=== PATIENT | female | born 1970 | race Caucasian/White ===

== ENCOUNTER → 2019-05-19 | Outpatient (CLI) | payer BC ==
--- NOTE | 2019-05-19 14:37 | XR ---
EXAMINATION TYPE: XR knee complete LT DATE OF EXAM: 05/19/2019 COMPARISON: NONE HISTORY: Pain TECHNIQUE: Four views are submitted. FINDINGS: Mild narrowing the patellofemoral joint and medial compartment knee joint. No erosive changes. Tiny s pur along the upper margin of the patella. Small suprapatellar bursal fluid collection.. Osseous str uctures are intact. No acute fracture seen. IMPRESSION: 1. No acute fracture or dislocation.
== END | disposition home or self-care (01) ==
LOC: RADXRMAIN 14:15
PROVIDERS: ATTEND Pediatrics
DX: M25.562 Pain in left knee (principal)

== ENCOUNTER → 2019-06-24 | Outpatient (CLI) | payer BC ==
--- NOTE | 2019-06-27 14:33 | MM ---
Reason for exam: screening (asymptomatic). Last mammogram was performed 3 years and 11 months ago. History: Patient is nulliparous. Family history of breast cancer in paternal grandmother at age 50. Took hormonal contraceptives for 17 years. Physical Findings: A clinical breast exam by your physician is recommended on an annual basis and results should be correlated with mammographic findings. MG 3D Screening Mammo W/Cad Bilateral CC and MLO view(s) were taken. Prior study comparison: July 17, 2015, bilateral MG work up mamm w CAD BILAT. June 30, 2015, bilateral MG screening mammo w CAD. Finding: There is a circumscribed oval mass in the 3 o'clock position of the right breast, ultrasound recommended. Focal asymmetry left upper MLO view. ASSESSMENT: Incomplete: need additional imaging evaluation, BI-RAD 0 RECOMMENDATION: Special view mammogram of the left breast. Ultrasound of the right breast. [facility] will attempt to contact patient to return for supplemental views and ultrasound.
== END | disposition home or self-care (01) ==
LOC: RADMAMWWP 16:29
PROVIDERS: ATTEND Pediatrics
DX: Z12.31 Encounter for screening mammogram for malignant neoplasm of breast (principal)
CPT/HCPCS: 77063; 77067

== ENCOUNTER → 2019-07-06 | Outpatient (CLI) | payer BC ==
--- NOTE | 2019-07-07 10:30 | MM ---
Reason for exam: additional evaluation requested from abnormal screening. Last mammogram was performed less than 1 month ago. History: Patient is nulliparous. Family history of breast cancer in paternal grandmother at age 50. Took hormonal contraceptives for 17 years. Physical Findings: Nurse did not find any significant physical abnormalities on exam. MG 3D Work Up W/Cad LT CC and MLO view(s) were taken of the left breast. Prior study comparison: June 24, 2019, bilateral MG 3d screening mammo w/cad. July 17, 2015, bilateral MG work up mamm w CAD BILAT. There is no discrete abnormality including area of concern of left breast. Review of the right breast reveals a spiculated area upper outer quadrant right breast and ultrasound is recommended. Also ultrasound area of concern 1 o'clock right breast. These results were verbally communicated with the patient and result sheet given to the patient on 07/06/19. ASSESSMENT: Incomplete: need additional imaging evaluation, BI-RAD 0 RECOMMENDATION: Ultrasound. (right breast)
--- NOTE | 2019-07-07 10:38 | USB ---
Reason for exam: additional evaluation requested from abnormal screening. History: Patient is nulliparous. Family history of breast cancer in paternal grandmother at age 50. Took hormonal contraceptives for 17 years. US Breast Workup Limited RT Right limited breast ultrasound including focal area of concern, retroareolar and axilla demonstrates a 0.8 x 0.7 x 0.7cm cluster at 9 o'clock, a 0.8 x 0.7 x 0.3cm cystic lesion at 10 o'clock, a 1.0 x 0.6 x 0.7cm irregular, solid, hypoechoic lesion at 10 o'clock for which a tissue biopsy is recommended and a 0.6 x 0.5 x 0.3cm mixed lesion at 12 o'clock. These results were verbally communicated with the patient and result sheet given to the patient on 07/06/19. ASSESSMENT: Suspicious, BI-RAD 4 RECOMMENDATION: Ultrasound core biopsy of the right breast. Called Dr. Reed with mammographic findings and has scheduled an appointment for the patient for 07/20/19 at 4:[address] Grijalva. Biopsy scheduled for 07/28/19 at 12:20. PRELIMINARY REPORT CALLED AND FAXED TO DR. GRIJALVA ON 07/07/19.
== END | disposition home or self-care (01) ==
LOC: RADMAMWWP 14:12
PROVIDERS: ATTEND Pediatrics
DX: R92.8 Other abnormal and inconclusive findings on diagnostic imaging of breast (principal)
CPT/HCPCS: 77061; 77065

== ENCOUNTER → 2019-07-20 | Outpatient (CLI) | payer BC ==
[2019-07-20 16:06] VITALS: BP 122/80; PULSE 78; RESP 18; TEMP 98.1; BMI 35.9
--- NOTE | 2019-07-20 16:23 | P.GSHP ---
History of Present Illness H&P Date: 07/20/19 Chief Complaint: Abnormal mammogram and ultrasound Anitha is a 49-year-old white female who presents for breast evaluation. She had a routine mammogram performed on . Following this she was recommended to have additional views of the left breast and ultrasound of the right breast. Additional views of the left breast did not show anything of concern but in the right breast and ultrasound was recommended. Ultrasound revealed a 1 x 0.7 cm irregular solid lesion at 10:00 for which a tissue biopsy was recommended. The patient does not feel anything of concern in her breasts. She has no history of any trauma or infection in the breast. She has no history of any skin changes or nipple discharge. She is not complaining of any pain in her breasts. Family history: 1. father: Glioblastoma 2. Paternal grandmother: Breast cancer Hormonal history: menarche: 14 G0 periods regular, on her period now BCP: 20 years, stopped 5 years ago hormones: none Surgical History: none Medical History: none Social History: smoke: none alcohol: occasional drugs: none - Constitutional Constitutional: Denies chills, Denies fever - EENT Eyes: denies blurred vision, denies pain Ears: deny: decreased hearing, tinnitus Ears, nose, mouth and throat: Denies headache, Denies sore throat - Breasts Breasts: bilateral: as per HPI - Cardiovascular Cardiovascular: Denies chest pain, Denies shortness of breath - Respiratory Comment: asthma - Gastrointestinal Gastrointestinal: Denies abdominal pain, Denies diarrhea, Denies nausea, Denies vomiting - Genitourinary (Female) Genitourinary: Denies dysuria, Denies hematuria - Menstruation Menstruation: Reports period normal - Musculoskeletal Musculoskeletal: Denies myalgias - Integumentary Comment: psoriasis - Neurological Neurological: Denies numbness, Denies weakness - Psychiatric Psychiatric: Denies anxiety, Denies depression - Endocrine Endocrine: Reports fatigue, Denies weight change - Hematologic/Lymphatic Comment: none - Allergic/Immunologic Allergic/Immunologic: Reports seasonal allergies Past Medical History History of Any Multi-Drug Resistant Organisms: None Reported Smoking Status: Never smoker Medications and Allergies Home Medications Medication Instructions Recorded Confirmed Type Apremilast [Otezla] 30 mg PO DAILY 07/20/19 07/20/19 History Cholecalciferol (Vitamin D3) 2,000 unit PO WEEKLY 07/20/19 07/20/19 History [Vitamin D3] Allergies Allergy/AdvReac Type Severity Reaction Status Date / Time No Known Allergies Allergy Verified 07/20/19 16:06 Surgical - Exam Vital Signs Temp Pulse Resp BP Pulse Ox 98.1 F 78 18 122/80 98 07/20/19 16:02 07/20/19 16:02 07/20/19 16:02 07/20/19 16:02 07/20/19 16:02 BMI 36 - General well developed, well nourished, no distress, obese - Eyes normal ocular movement - ENT no hearing loss, no congestion - Neck no masses, trachea midline - Respiratory normal respiratory effort, clear to auscultation - Cardiovascular Rhythm: regular Heart Sounds: normal: S1, S2 - Abdomen Abdomen: soft, non tender, no guarding, no rigid, no rebound - Integumentary normal turgor - Neurologic no disoriented, no combative - Musculoskeletal normal gait, normal posture - Psychiatric oriented to time, oriented to person, oriented to place, speech is normal, memory intact breast exam: bra 42D Right breast: Multi-positional exam fibrocystic changes, no dominant masses or nodules of concern, the lesion seen on ultrasound could not be palpated Right axilla: No adenopathy of concern Left breast: Fibrocystic change increased nodularity at the 1 to 2 o'clock position in the midportion of the breast recommend ultrasound of this area if no lesion is identified FNA in the office Left axilla: No adenopathy of concern Patient has underneath both breast atypical psoriasis for which she is taking out has left Results Mammogram and ultrasound results reviewed Assessment and Plan Assessment: Impression: 1. Mammographic abnormality right breast 2. Ultrasound abnormality right breast 3. Fibrocystic changes bilateral breast 4. Nodule left breast to palpation 1 to 2:00 5. Family history of cancer 6. Psoriasis Plan: 1. Ultrasound core biopsy right breast 2. Ultrasound of left breast a palpable area 3. Depending on results of ultrasound of left breast FNA or core biopsy in the office 4. Medical management of medical conditions Risk and benefits of ultrasound core biopsy were discussed with the patient. She is scheduled for the near future and wishes to proceed. CC: DR. Reed
--- NOTE | 2019-07-21 08:44 | USB ---
Reason for exam: clinical finding. History: Patient is nulliparous. Family history of breast cancer in paternal grandmother at age 50. Took hormonal contraceptives for 17 years. Physical Findings: Breast exam performed by Dr. Grijalva. US Breast Limited LT Left limited breast ultrasound including focal area of concern, retroareolar and axilla demonstrates a 7 x 4 x 7mm oval, cystic lesion at 1 o'clock and three oval lymph nodes at the axilla tail measuring 6mm, 4mm and 5mm. Benign findings recommendation remains for right biopsy. Palpable left breast by Dr. Grijalva 1-2 o'clock. These results were verbally communicated with the patient and result sheet given to the patient on 07/20/19. ASSESSMENT: Suspicious, BI-RAD 4 RECOMMENDATION: Ultrasound core biopsy. (right breast) Called Dr. Grijalva's office with mammographic findings. Biopsy scheduled for 07/28/19 at 12:20. PRELIMINARY REPORT CALLED AND FAXED TO DR. GRIJALVA ON 07/21/19.
== END | disposition home or self-care (01) ==
LOC: WWCWWP 15:56
PROVIDERS: ATTEND Surgery
DX: R92.8 Other abnormal and inconclusive findings on diagnostic imaging of breast (principal); Z80.3 Family history of malignant neoplasm of breast

== ENCOUNTER → 2019-07-28 | Day surgery (SDC) | payer BC ==
[2019-07-28 12:49] VITALS: RESP 16; BMI 35.4
--- NOTE | 2019-07-28 13:49 | USB ---
EXAMINATION TYPE: US biopsy breast VAD RT, MG diagnostic mammo RT wo CAD DATE OF EXAM: 07/28/2019 CLINICAL HISTORY: R92.8 ABN MAMMO. TECHNIQUE: Ultrasound guided core biopsy of 10:00 right breast. COMPARISON: NONE FINDINGS: The procedure of ultrasound guided core biopsy was explained to the patient. Benefits, alternatives, and risks were discussed. An informed consent was then obtained. The patient was placed in supine positioning for imaging and for the procedure. The overlying skin was prepped and draped in usual sterile fashion. Lidocaine was used as anesthetic into the skin and subcutaneous tissue up to area of concern in the 10:00 right breast. Under ultrasound guidance, a 12-gauge vacuum assisted biopsy gun device was used to obtain 4 core samples. Following this, a biopsy clip was left in lesion. Verification mammogram demonstrates appropriate placement of clip marker. The patient tolerated the procedure well without any immediate complication. The patient was kept in the radiology department for short stay after the procedure and then discharged home in stable condition. IMPRESSION: Successful, uncomplicated ultrasound guided core biopsy of area of concern in the 10:00 right breast, full pathology results to follow. Pathology Results: Benign RIGHT BREAST MASS, ULTRASOUND GUIDED CORE BIOPSY: Sclerosing adenosis and fibrocystic change with foci of calcification. Recommendation Follow up ultrasound of the right breast in 6 months. LOY
[2019-07-28 13:55] VITALS: BP 118/76; PULSE 74; TEMP 97.9
== END ==
LOC: RADUSWWP 12:20
PROVIDERS: ATTEND Surgery
DX: N60.21 Fibroadenosis of right breast (principal); N60.11 Diffuse cystic mastopathy of right breast
CPT/HCPCS: 88305; 77065; 19083; A4648; J2001

== ENCOUNTER → 2019-08-04 | Outpatient (CLI) | payer BC ==
[2019-08-04 15:20] VITALS: BP 110/77; PULSE 99; RESP 18; TEMP 98.3; BMI 35.4
--- NOTE | 2019-08-04 16:07 | P.PN ---
Subjective Progress Note Date: 08/04/19 Principal diagnosis: discordant ultrasound core biopsy results right breast /evaluation of nodularity left breast Anitha is a 49-year-old white female who presents for breast evaluation. [place] [id number]. Following this she was recommended to have additional views of the left breast and ultrasound of the right breast. Additional views of the left breast did not show anything of concern but in the right breast and ultrasound was recommended. Ultrasound revealed a 1 x 0.7 cm irregular solid lesion at 10:00 for which a tissue biopsy was recommended. The patient does not feel anything of concern in her breasts. She has no history of any trauma or infection in the breast. She has no history of any skin changes or nipple discharge. She is not complaining of any pain in her breasts. Was recommended that the patient undergo a right breast ultrasound core biopsy. It was also recommended that she undergo a left breast ultrasound. She is status post a right breast ultrasound-guided core biopsy on [id number]. Pathology revealed sclerosing adenosis, fibrocystic change with foci of calcification. This was reviewed with the radiologist Dr. Isaac and there was some concern that the actual area of irregular solid lesion was adequately sampled. Therefore because this was discordant the options given to the patient of repeat ultrasound core biopsy versus needle localization and excision in the operating room. The patient has opted for needle localization and excision in the operating room. She understands that this may represent only fibrocystic disease however there is some question as to whether the lesion was actually sampled. The patient had some mild bruising and swelling of the right breast biopsy site but otherwise no complaints related to the procedure. With respect to the left breast the patient underwent a left breast ultrasound which showed fibrocystic change. The patient on her last visit was noted to have a palpable area in the left breast which we had determined if the ultrasound was negative but an FNA would be done of this area. The risks and benefits of FNA are discussed with the patient and this is going to be performed today. Family history: 1. father: Glioblastoma 2. Paternal grandmother: Breast cancer Hormonal history: menarche: 14 G0 periods regular, on her period now BCP: 20 years, stopped 5 years ago hormones: none Surgical History: none Medical History: none Social History: smoke: none alcohol: occasional drugs: none - Constitutional Constitutional: Denies chills, Denies fever - EENT Eyes: denies blurred vision, denies pain Ears: deny: decreased hearing, tinnitus Ears, nose, mouth and throat: Denies headache, Denies sore throat - Breasts Breasts: bilateral: as per HPI - Cardiovascular Cardiovascular: Denies chest pain, Denies shortness of breath - Respiratory Comment: asthma - Gastrointestinal Gastrointestinal: Denies abdominal pain, Denies diarrhea, Denies nausea, Denies vomiting - Genitourinary (Female) Genitourinary: Denies dysuria, Denies hematuria - Menstruation Menstruation: Reports period normal - Musculoskeletal Musculoskeletal: Denies myalgias - Integumentary Comment: psoriasis - Neurological Neurological: Denies numbness, Denies weakness - Psychiatric Psychiatric: Denies anxiety, Denies depression - Endocrine Endocrine: Reports fatigue, Denies weight change - Hematologic/Lymphatic Comment: none - Allergic/Immunologic Allergic/Immunologic: Reports seasonal allergies Past Medical History History of Any Multi-Drug Resistant Organisms: None Reported Smoking Status: Never smoker Medications and Allergies Home Medications Medication Instructions Recorded Confirmed Type Apremilast [Otezla] 30 mg PO DAILY 07/20/19 07/20/19 History Cholecalciferol (Vitamin D3) 2,000 unit PO WEEKLY 07/20/19 07/20/19 History [Vitamin D3] Allergies Allergy/AdvReac Type Severity Reaction Status Date / Time No Known Allergies Allergy Verified 07/20/19 16:06 Objective - Vital Signs Vital signs: Vital Signs Temp 98.3 F 08/04/19 15:15 Pulse 99 08/04/19 15:15 Resp 18 08/04/19 15:15 BP 110/77 08/04/19 15:15 Pulse Ox 96 08/04/19 15:15 Intake & Output 08/03/19 08/04/19 08/04/19 18:59 06:59 18:59 Weight 90.718 kg - Exam BMI 35.4 - Constitutional General appearance: Present: obese - EENT Eyes: Present: EOMI ENT: Present: hearing grossly normal - Neck Neck: Present: normal ROM - Respiratory Respiratory: bilateral: CTA - Cardiovascular Rhythm: regular Heart sounds: normal: S1, S2 - Gastrointestinal General gastrointestinal: Present: soft - Integumentary Integumentary: Present: normal turgor - Musculoskeletal Musculoskeletal: Present: gait normal - Psychiatric Psychiatric: Present: A&O x's 3, appropriate affect, intact judgment & insight - Allied health notes Allied Health Notes Comment(s): Breast examination: Right breast: Mild ecchymosis at biopsy site, no evidence of infection Left breast: Patient with persistent increased fullness upper-outer quadrant area FNA to be performed of this area Assessment and Plan Assessment: Impression: 1. Discordant ultrasound core biopsy of the right breast 2. Persistent fullness left breast with benign-appearing ultrasound in upper outer quadrant 3. Family history of cancer 4. Family history of breast cancer 5. psoriasis Plan: 1. Needle local excisional biopsy ultrasound abnormality right breast 2. FNA left breast 3. Medical management of medical conditions Risks and benefits of the procedure on the right breast were discussed with the patient. The reason for this secondary to the lesion being discordant was discussed with the patient. Options which would include close surveillance with repeat ultrasound in 6 months, repeat ultrasound core biopsy, or needle local excision in the operating room were discussed. After discussion the patient is opted for needle localization and excision in the operating room. Additionally discussion was had regarding the fullness in the left breast and the reason for fine-needle aspiration. Patient understood and wished to proceed. About 30 minutes spent on the visit. >50% spent on discussion.
--- NOTE | 2019-08-04 16:10 | P.PCN ---
Date of Procedure: 08/04/19 Preoperative Diagnosis: Fullness left breast upper outer quadrant Postoperative Diagnosis: same Procedure(s) Performed: Fine-needle aspiration left breast Anesthesia: none Surgeon: Frances Grijalva Pathology: other (breast FNA cytology) Condition: stable Disposition: same day Indications for Procedure: Fullness left breast upper outer quadrant Description of Procedure: Area of fullness the left breast was prepped using alcohol. A 21-gauge needle on a 10 mL syringe was inserted into the area of concern. Vacuum was applied to the plunger and multiple passes were made into the area of fullness. Cells were obtained. This was prepped and sent for pathology. Depending on results of this further recommendation to follow.
== END | disposition home or self-care (01) ==
LOC: WWCWWP 15:03
PROVIDERS: ATTEND Surgery
DX: N63.20 Unspecified lump in the left breast, unspecified quadrant (principal); Z98.890 Other specified postprocedural states
CPT/HCPCS: 88173

== ENCOUNTER 2019-09-20 07:20 | Day surgery (SDC) | payer BC ==
[2019-09-19 09:12] VITALS: BMI 35.4
[~2019-09-20 07:20] MED LIST: DEXAMETHASONE SOD PHOSPHATE 10 MG/ML 1 ML VIAL IV ONE; HEPARIN SODIUM,PORCINE 5,000 UNIT/ML 1 ML VIAL SQ ONE; HYDROmorphone 0.5 MG/0.5 ML SYRINGE IVP PRN; LACTATED RINGERS 1,000 ML IV SCH; LIDOCAINE 1% 20 ML VIAL (10MG/ML) FOR IV START INTRADERMA PRN; MIDAZOLAM 2 MG/2 ML VIAL IV PRN; ONDANSETRON 4 MG/2 ML VIAL IVP ONE; Pre Op ABX Message 1 EACH MISC MISCELLANE ONE; SCOPOLAMINE 1.5MG/72HR PATCH TRANSDERM ONE
[2019-09-20] MEDS ORDERED: ALPRAZolam 0.5 MG TAB PO ONE (07:58)
[2019-09-20] MEDS ORDERED: LIDOCAINE 1% INJ 10MG/ML (20 ML MDV) SQ ONE (09:06)
[2019-09-20] MEDS ORDERED: PROPOFOL 10 MG/ML 20 ML VIAL IV ONE (09:37)
[2019-09-20] MEDS ORDERED: fentaNYL (PF) 50 MCG/ML 2 ML AMP ONE (09:37)
[2019-09-20] MEDS ORDERED: PHENYLEPHRINE-0.9% NACL SYG 1 MG/10 ML SYRINGE ONE (09:37)
[2019-09-20] MEDS ORDERED: SUCCINYLCHOLINE CHLORIDE 100 MG/5 ML SYR IV ONE (09:37)
[2019-09-20] MEDS ORDERED: LIDOCAINE 1% INJ 10MG/ML (20 ML MDV) ONE (09:37)
[2019-09-20] MEDS ORDERED: MIDAZOLAM 2 MG/2 ML VIAL ONE (09:37)
[2019-09-20] MEDS ORDERED: LACTATED RINGERS 1,000 ML IV ONE (10:32)
--- NOTE | 2019-09-20 10:41 | P.OP ---
Date of Procedure: 09/20/19 Preoperative Diagnosis: ultrasound-guided core biopsy right breast discordant Postoperative Diagnosis: same Procedure(s) Performed: needle local excisional biopsy right breast Anesthesia: ANDREAA Surgeon: Frances Grijalva Estimated Blood Loss (ml): 3 IV fluids (ml): 500 Pathology: other (breast tissue) Condition: stable Disposition: same day Indications for Procedure: discordant ultrasound core biopsy right breast Operative Findings: dense breast tissue Description of Procedure: Anitha is a 49-year-old white female who had an ultrasound core biopsy of an area of concern in the right breast. Pathology was felt to be discordant and she opted for needle local excisional biopsy of the area of concern. Risk and benefits were discussed with the patient and she wished to proceed. The patient was taken to the radiology department where localization of area of concern was performed. She was then brought to the operating room. Following induction of anesthesia the right breast was prepped and draped in a sterile fashion. Incision was made near the tip of the. This is carried through skin and subcutaneous tissue into the breast tissue. The shaft was identified and brought into the incision. The tissue was clamped using Allis clamps. Circumferential dissection was performed removing the area of concern. Following this the specimen was painted for orientation. Specimen was sent to radiology. Specimen revealed the area of concern had been removed. The clip was in the specimen. The wound was well irrigated. Titanium clips were placed to sasha the area of concern. The deep tissues were closed using Vicryl suture. The subcutaneous tissue was closed using a 4-0 Monocryl suture. This was followed by subcuticular running Suture. The patient tolerated the procedure in stable condition. All instrument and sponge counts were correct at the end of the case.
--- NOTE | 2019-09-20 10:42 | P.DS ---
Providers Attending physician: Frances Grijalva Primary care physician: Lalo Reed Plan - Discharge Summary Discharge Rx Participant: No New Discharge Prescriptions: No Action Apremilast [Otezla] 30 mg PO DAILY Cholecalciferol (Vitamin D3) [Vitamin D3] 2,000 unit PO WEEKLY Discharge Medication List Apremilast [Otezla] 30 mg PO DAILY 07/20/19 [History] Cholecalciferol (Vitamin D3) [Vitamin D3] 2,000 unit PO WEEKLY 07/20/19 [History] Follow up Appointment(s)/Referral(s): Frances Grijalva MD [STAFF PHYSICIAN] - 1 Week Activity/Diet/Wound Care/Special Instructions: do not drive today, or fro 24 hours after DC nay shower after 48 hours wear bra at all times Discharge Disposition: HOME SELF-CARE
[2019-09-20 11:00] VITALS: TEMP 97
[2019-09-20 11:04] VITALS: RESP 16
[2019-09-20 12:13] VITALS: BP 106/72; PULSE 67
--- NOTE | 2019-09-20 12:21 | MM ---
EXAMINATION TYPE: MG pre op needle loc RT, MG surgical specimen RT DATE OF EXAM: 09/20/2019 COMPARISON: Right breast biopsy dated 07/28/2019 CLINICAL HISTORY: Discordant right breast biopsy per surgical. TECHNIQUE: Needle localization with wire placement and surgical excision of area of concern in the right breast. FINDINGS: The procedure of needle localization with wire placement and than surgical excision was explained to the patient. Benefits, alternatives, and risks were discussed. An informed consent was then obtained. Preprocedural timeout was performed. The shortest pathway for procedure was chosen. Shortest pathway was lateral to medial approach. The overlying skin was prepped and draped in usual sterile fashion. Lidocaine buffered with bicarbonate was used as anesthetic into the skin and subcutaneous tissue up to the level of area of concern. A 5 cm needle was used. It was placed via a lateral to medial approach under mammographic guidance. Subsequent 90 degrees mammogram show the needle to be in satisfactory position relative to the targeted area. At this point, wire was placed and the needle was withdrawn. The wire was fixed to patient's skin. Images were marked for surgeon. The patient tolerated the procedure well without any immediate complication. The patient was kept in the radiology department for short stay after the procedure and then taken to surgery for surgical excision. Targeted ribbon- shaped biopsy marker and wire are identified in specimen mammogram. The patient was kept in hospital for short stay after the procedure and then discharged home in stable condition. IMPRESSION: Successful, uncomplicated needle localization with wire placement and surgical excision of a targeted ribbon-shaped biopsy marker in the right breast, full pathology results to follow. Pathology Results: Benign RIGHT BREAST, NEEDLE LOCALIZATION EXCISION: Fibrocystic changes including sclerosing adenosis with calcifications, cysts, fibrosis, and apocrine metaplasia. Previous biopsy site changes. Recommendation Follow up mammogram of the right breast in 6 months. MTDD
== END 2019-09-20 12:29 | disposition home or self-care (01) ==
LOC: OR 07:20
PROVIDERS: ATTEND Surgery
DX: N60.11 Diffuse cystic mastopathy of right breast (principal); Z80.3 Family history of malignant neoplasm of breast
CPT/HCPCS: 81025; 88307; 76098; 19281; 19101; J2250; J1644; J1100; J2405; J2001; J3010; J2370; J0330; J2704

== ENCOUNTER → 2019-10-12 | Outpatient (CLI) | payer BC ==
[2019-10-12 16:36] VITALS: BP 101/68; PULSE 85; RESP 16; TEMP 97.8
--- NOTE | 2019-10-12 16:44 | P.PN ---
Progress Note - Text Progress Note Date: 10/12/19 Anitha is a 49-year-old white female status post right breast needle local excisional biopsy for discordant ultrasound core biopsy lesion. This was performed on [id number]. Patient has no complaints related to the procedure. Pathology is benign. This revealed fibrocystic changes including sclerosing adenosis with calcifications, cysts, fibrosis, and apocrine metaplasia. Physical exam: Lungs: Clear Heart: Regular rate and rhythm Incision: Clean and dry no evidence of infection Impression: 1. Right breast needle local excisional biopsy pathology benign Plan: 1. Repeat right breast mammogram in 6 months with physician exam at that time Cc: Dr. Eugenio See
== END | disposition home or self-care (01) ==
LOC: WWCWWP 16:28
PROVIDERS: ATTEND Surgery
DX: Z53.9 Procedure and treatment not carried out, unspecified reason (principal)

== ENCOUNTER → 2020-04-16 | Outpatient (CLI) | payer BC ==
--- NOTE | 2020-04-16 10:15 | MM ---
Reason for exam: follow-up at short interval from prior study. Last mammogram was performed 9 months ago. History: Patient is nulliparous. Family history of breast cancer in paternal grandmother at age 50. Benign MG pre op needle loc RT of the right breast, September 20, 2019. Benign US biopsy breast VAD RT of the right breast, July 28, 2019. Took hormonal contraceptives for 17 years. Physical Findings: Nurse did not find any significant physical abnormalities on exam. MG 3D Diag Mammo W/Cad RT CC and MLO view(s) were taken of the right breast. Prior study comparison: July 28, 2019, right breast MG diagnostic mammo RT wo CAD. July 06, 2019, left breast MG 3d work up w/cad LT. The breast tissue is heterogeneously dense. This may lower the sensitivity of mammography. Stable benign calcifications. There is chronic nodularity in the right breast. No significant new findings when compared with previous films. These results were verbally communicated with the patient and result sheet given to the patient on 04/16/20. ASSESSMENT: Benign, BI-RAD 2 RECOMMENDATION: Return to routine screening mammogram schedule for both breasts. Back on schedule for July 2020.
== END | disposition home or self-care (01) ==
LOC: RADMAMWWP 09:27
PROVIDERS: ATTEND Surgery
DX: R92.8 Other abnormal and inconclusive findings on diagnostic imaging of breast (principal)
CPT/HCPCS: 77061; 77065

== ENCOUNTER → 2020-07-30 | Outpatient (CLI) | payer BC ==
--- NOTE | 2020-08-01 09:07 | MM ---
Reason for exam: screening (asymptomatic). Last mammogram was performed 3 months ago. History: Patient is nulliparous. Family history of breast cancer in paternal grandmother at age 50. Benign MG pre op needle loc RT of the right breast, September 20, 2019. Benign US biopsy breast VAD RT of the right breast, July 28, 2019. Took hormonal contraceptives for 17 years. Physical Findings: A clinical breast exam by your physician is recommended on an annual basis and results should be correlated with mammographic findings. MG 3D Screening Mammo W/Cad Bilateral CC and MLO view(s) were taken. Prior study comparison: April 16, 2020, right breast MG 3d diag mammo w/cad RT. July 28, 2019, right breast MG diagnostic mammo RT wo CAD. The breast tissue is heterogeneously dense. This may lower the sensitivity of mammography. Finding: Architectural distortion in the upper outer quadrant, middle, posterior position of the right breast consistent with known excisional changes. There is a 9mm lobular lesion upper anterior left breast 5cm from the nipple on CC 52/75 and MLO 57/83. There is a new 8mm circumscribed lesion anterior right upper outer quadrant 5cm from the nipple MLO 24/85 and CC 43/70. ASSESSMENT: Incomplete: need additional imaging evaluation, BI-RAD 0 RECOMMENDATION: Ultrasound of both breasts. [facility] will attempt to contact patient to return for ultrasound.
== END | disposition home or self-care (01) ==
LOC: RADMAMWWP 16:35
PROVIDERS: ATTEND Surgery
DX: Z12.31 Encounter for screening mammogram for malignant neoplasm of breast (principal)
CPT/HCPCS: 77063; 77067

== ENCOUNTER → 2020-08-03 | Outpatient (CLI) | payer BC ==
--- NOTE | 2020-08-06 08:41 | USB ---
Reason for exam: additional evaluation requested from abnormal screening. History: Patient is nulliparous. Family history of breast cancer in paternal grandmother at age 50. Benign MG pre op needle loc RT of the right breast, September 20, 2019. Benign US biopsy breast VAD RT of the right breast, July 28, 2019. Took hormonal contraceptives for 17 years. Physical Findings: Nurse did not find any significant physical abnormalities on exam. US Breast Workup Limited JESIKA Right limited breast ultrasound including focal area of concern, retroareolar and axilla demonstrates a 7 x 6 x 8mm lobular, cystic lesion at 10 o'clock and a 7 x 4 x 7mm lobular, cystic lesion at 11 o'clock. Left limited breast ultrasound including focal area of concern, retroareolar and axilla demonstrates a 5 x 4 x 6mm lobular, cystic lesion at 11 o'clock and a 9 x 5 x 7mm oval, cystic lesion at 1 o'clock. These results were verbally communicated with the patient and result sheet given to the patient on 08/03/20. ASSESSMENT: Benign, BI-RAD 2 RECOMMENDATION: Return to routine screening mammogram schedule for both breasts.
== END | disposition home or self-care (01) ==
LOC: RADUSWWP 15:51
PROVIDERS: ATTEND Surgery
DX: R92.8 Other abnormal and inconclusive findings on diagnostic imaging of breast (principal)

== ENCOUNTER → 2020-08-03 | Outpatient (CLI) | payer BC ==
[2020-08-03 17:10] VITALS: BP 125/82; PULSE 86; RESP 18; TEMP 97.8
--- NOTE | 2020-08-03 17:17 | P.PN ---
Subjective Progress Note Date: 08/03/20 Principal diagnosis: Fibrocystic breast changes Anitha is a 50-year-old white female who presented for breast evaluation initially in July of 2019. [place] [id number]. Following this she was recommended to have additional views of the left breast and ultrasound of the right breast. Additional views of the left breast did not show anything of concern but in the right breast and ultrasound was recommended. Ultrasound revealed a 1 x 0.7 cm irregular solid lesion at 10:00 for which a tissue biopsy was recommended. The patient does not feel anything of concern in her breasts. She has no history of any trauma or infection in the breast. She has no history of any skin changes or nipple discharge. She is not complaining of any pain in her breasts. She had an ultrasound core biopsy performed in July 2019. This was benign but there was some concern that this was discordant. She therefore underwent a breast needle local excisional biopsy in September 2019. This was benign as well. She had a mammogram. [id number]. This was benign BIRADS 2 and routine screening of both breasts in July 2020 was recommended. She had a bilateral mammogram performed on [id number]. This was a bilateral screening mammogram after which she had ultrasound of both breasts performed. Ultrasound of both breasts was performed on [id number] which is felt to be benign and one-year repeat mammogram was recommended. The patient at this time does not note any pain lumps masses nodules or skin changes in her breasts. She second complaining of any nipple discharge of concern. No history of any recent trauma or other procedures on the breast. Family history: 1. father: Glioblastoma 2. Paternal grandmother: Breast cancer Hormonal history: menarche: 14 G0 periods regular, on her period now BCP: 20 years, stopped 5 years ago hormones: none Surgical History: none Medical History: none Social History: smoke: none alcohol: occasional drugs: none - Constitutional Constitutional: Denies chills, Denies fever - EENT Eyes: denies blurred vision, denies pain Ears: deny: decreased hearing, tinnitus Ears, nose, mouth and throat: Denies headache, Denies sore throat - Breasts Breasts: bilateral: as per HPI - Cardiovascular Cardiovascular: Denies chest pain, Denies shortness of breath - Respiratory Comment: asthma - Gastrointestinal Gastrointestinal: Denies abdominal pain, Denies diarrhea, Denies nausea, Denies vomiting - Genitourinary (Female) Genitourinary: Denies dysuria, Denies hematuria - Menstruation Menstruation: Reports period normal - Musculoskeletal Musculoskeletal: Denies myalgias - Integumentary Comment: psoriasis - Neurological Neurological: Denies numbness, Denies weakness - Psychiatric Psychiatric: Denies anxiety, Denies depression - Endocrine Endocrine: Reports fatigue, Denies weight change - Hematologic/Lymphatic Comment: none - Allergic/Immunologic Allergic/Immunologic: Reports seasonal allergies Objective - Exam BMI 33.7 - Constitutional General appearance: Present: obese - EENT Eyes: Present: EOMI ENT: Present: hearing grossly normal - Neck Neck: Present: normal ROM - Respiratory Respiratory: bilateral: CTA - Cardiovascular Rhythm: regular Heart sounds: normal: S1, S2 - Gastrointestinal General gastrointestinal: Present: soft - Integumentary Integumentary Comment(s): Bilateral psoriasis on arms Integumentary: Present: normal turgor - Musculoskeletal Musculoskeletal: Present: gait normal - Psychiatric Psychiatric: Present: A&O x's 3, appropriate affect, intact judgment & insight - Additional findings Additional findings: Breast exam: BRA: 42F inspection: bilateral grade 3 ptosis, right breast larger than left breast Palpation: Right breast: Multiple positional exam fibrocystic breast changes, no dominant masses or nodules of concern Right axilla: No adenopathy of concern Left breast: Multi-positional exam fibrocystic changes, no dominant masses or nodules of concern Left axilla: No adenopathy of concern Assessment and Plan Assessment: Impression: Recent bilateral mammogram and ultrasound benign repeat mammogram in 1 year Fibrocystic breast changes Psoriasis Plan: 1. Repeat bilateral mammogram and physician exam in 1 year 2. Follow up sooner if any questions of concern CC: Dr. Reed encounter 15 minutes, > 50% of time in planning and counselling
== END | disposition home or self-care (01) ==
LOC: WWCWWP 15:53
PROVIDERS: ATTEND Surgery
DX: Z53.9 Procedure and treatment not carried out, unspecified reason (principal)

== ENCOUNTER → 2021-08-02 | Outpatient (CLI) | payer BC ==
--- NOTE | 2021-08-06 08:06 | MM ---
Reason for exam: screening (asymptomatic). Last mammogram was performed 1 year ago. History: Patient is nulliparous. Family history of breast cancer in paternal grandmother at age 50. Benign MG pre op needle loc RT of the right breast, September 20, 2019. Benign US biopsy breast VAD RT of the right breast, July 28, 2019. Took hormonal contraceptives for 17 years. Physical Findings: A clinical breast exam by your physician is recommended on an annual basis and results should be correlated with mammographic findings. MG 3D Screening Mammo W/Cad Bilateral CC and MLO view(s) were taken. Prior study comparison: August 03, 2020, bilateral US breast workup limited JESIKA. July 30, 2020, bilateral MG 3d screening mammo w/cad. April 16, 2020, right breast MG 3d diag mammo w/cad RT. June 24, 2019, bilateral MG 3d screening mammo w/cad. The breast tissue is heterogeneously dense. This may lower the sensitivity of mammography. There is chronic nodularity in the right breast. Post excision changes on the right. No significant changes when compared with prior studies. ASSESSMENT: Benign, BI-RAD 2 RECOMMENDATION: Routine screening mammogram of both breasts in 1 year.
== END | disposition home or self-care (01) ==
LOC: RADMAMWWP 16:38
PROVIDERS: ATTEND Surgery
DX: Z12.31 Encounter for screening mammogram for malignant neoplasm of breast (principal)
CPT/HCPCS: 77063; 77067

== ENCOUNTER → 2021-08-09 | Outpatient (CLI) | payer BC ==
[2021-08-09 16:23] VITALS: BP 105/67; PULSE 87; RESP 16; TEMP 98.2
--- NOTE | 2021-08-09 16:26 | P.PN ---
Subjective Progress Note Date: 08/09/21 Principal diagnosis: fibrocystic breast changes Fibrocystic breast changes Anitha is a 50-year-old white female who presented for breast evaluation initially in July of 2019. [place] [id number]. Following this she was recommended to have additional views of the left breast and ultrasound of the right breast. Additional views of the left breast did not show anything of concern but in the right breast and ultrasound was recommended. Ultrasound revealed a 1 x 0.7 cm irregular solid lesion at 10:00 for which a tissue biopsy was recommended. The patient does not feel anything of concern in her breasts. She has no history of any trauma or infection in the breast. She has no history of any skin changes or nipple discharge. She is not complaining of any pain in her breasts. She had an ultrasound core biopsy performed in July 2019. This was benign but there was some concern that this was discordant. She therefore underwent a breast needle local excisional biopsy in September 2019. This was benign as well. She had a mammogram. . This was benign BIRADS 2 and routine screening of both breasts in July 2020 was recommended. She had a bilateral mammogram performed on [id number]. This was a bilateral screening mammogram after which she had ultrasound of both breasts performed. Ultrasound of both breasts was performed on [id number] which is felt to be benign and one-year repeat mammogram was recommended. On 08-02-21 she had a bilateral mammogram which was Benign BIRAD 2. The patient at this time does not note any pain lumps masses nodules or skin changes in her breasts. She is not complaining of any nipple discharge or skin changes. No history of any recent trauma or other procedures on the breast. Family history: 1. father: Glioblastoma 2. Paternal grandmother: Breast cancer Hormonal history: menarche: 14 G0 periods regular, on her period now BCP: 20 years, stopped 5 years ago hormones: none Surgical History: none Medical History: none Social History: smoke: none alcohol: occasional drugs: none - Constitutional Constitutional: Denies chills, Denies fever - EENT Eyes: denies blurred vision, denies pain Ears: deny: decreased hearing, tinnitus Ears, nose, mouth and throat: Denies headache, Denies sore throat - Breasts Breasts: bilateral: as per HPI - Cardiovascular Cardiovascular: Denies chest pain, Denies shortness of breath - Respiratory Comment: asthma - Gastrointestinal Gastrointestinal: Denies abdominal pain, Denies diarrhea, Denies nausea, Denies vomiting - Genitourinary (Female) Genitourinary: Denies dysuria, Denies hematuria - Menstruation Menstruation: Reports period normal - Musculoskeletal Musculoskeletal: Denies myalgias - Integumentary Comment: psoriasis - Neurological Neurological: Denies numbness, Denies weakness - Psychiatric Psychiatric: Denies anxiety, Denies depression - Endocrine Endocrine: Reports fatigue, Denies weight change - Hematologic/Lymphatic Comment: none - Allergic/Immunologic Allergic/Immunologic: Reports seasonal allergies Objective - Vital Signs Vital signs: Intake & Output 08/08/21 08/09/21 08/09/21 18:59 06:59 18:59 Weight 90.718 kg - Constitutional General appearance: Present: cooperative - EENT Eyes: Present: EOMI ENT: Present: hearing grossly normal - Neck Neck: Present: normal ROM - Respiratory Respiratory: bilateral: CTA - Cardiovascular Heart sounds: normal: S1, S2 - Integumentary Integumentary: Present: normal turgor - Musculoskeletal Musculoskeletal: Present: gait normal - Psychiatric Psychiatric: Present: A&O x's 3, appropriate affect, intact judgment & insight - Additional findings Additional findings: Breast Exam: BRA: 42D inspection: bilateral grade 3 ptosis, bilateral psoriasis under the breast Palpation: right breast: Positional exam fibrocystic changes no dominant masses or nodules of concern Right axilla: No adenopathy of concern Left breast: Multi-positional exam fibrocystic changes no dominant masses or nodules of concern Left axilla: No adenopathy of concern Assessment and Plan Assessment: Impression: Fibrocystic breast changes Plan: Bilateral mammogram in 1 year with physician exam at that time CC: Dr. Reed
== END ==
LOC: WWCWWP 16:04
PROVIDERS: ATTEND Surgery
DX: N60.11 Diffuse cystic mastopathy of right breast (principal); N60.12 Diffuse cystic mastopathy of left breast

== ENCOUNTER → 2022-08-14 | Outpatient (CLI) | payer BC ==
[2022-08-14 16:13] VITALS: BP 104/68; PULSE 69; RESP 17; TEMP 98
--- NOTE | 2022-08-14 16:14 | P.PN ---
Subjective Progress Note Date: 08/14/22 Principal diagnosis: fibrocystic breast disease Fibrocystic breast changes Anitha is a 52-year-old white female who presented for breast evaluation initially in July of 2019. She had undergone a routine mammogram performed on . Following this she was recommended to have additional views of the left breast and ultrasound of the right breast. Additional views of the left breast did not show anything of concern but in the right breast an ultrasound was recommended. Ultrasound revealed a 1 x 0.7 cm irregular solid lesion at 10:00 for which a tissue biopsy was recommended. The patient does not feel anything of concern in her breasts. She had no history of any trauma or infection in the breast. She has no history of any skin changes or nipple discharge. She was not complaining of any pain in her breasts. She had an ultrasound core biopsy performed in July 2019. This was benign but there was some concern that this was discordant. She therefore underwent a breast needle local excisional biopsy in September 2019. This was benign as well. She had a mammogram. . This was benign BIRADS 2 and routine screening of both breasts in July 2020 was recommended. She had a bilateral mammogram performed on [id number]. This was a bilateral screening mammogram after which she had ultrasound of both breasts performed. Ultrasound of both breasts was performed on [id number] which was felt to be benign and one-year repeat mammogram was recommended. On 08-02-21 she had a bilateral mammogram which was Benign BIRAD 2. She has not had another mammogram yet this year. She does not complain of any lumps masses or nodules of concern in either breast. She is not complaining of any nipple discharge or skin changes Family history: 1. father: Glioblastoma 2. Paternal grandmother: Breast cancer Hormonal history: menarche: 14 G0 periods regular, on her period now BCP: 20 years, stopped 5 years ago hormones: none Surgical History: none Medical History: none Social History: smoke: none alcohol: occasional drugs: none - Constitutional Constitutional: Denies chills, Denies fever - EENT Eyes: denies blurred vision, denies pain Ears: deny: decreased hearing, tinnitus Ears, nose, mouth and throat: Denies headache, Denies sore throat - Breasts Breasts: bilateral: as per HPI - Cardiovascular Cardiovascular: Denies chest pain, Denies shortness of breath - Respiratory Comment: asthma - Gastrointestinal Gastrointestinal: Denies abdominal pain, Denies diarrhea, Denies nausea, Denies vomiting - Genitourinary (Female) Genitourinary: Denies dysuria, Denies hematuria - Menstruation Menstruation: Reports period normal - Musculoskeletal Musculoskeletal: Denies myalgias - Integumentary Comment: psoriasis - Neurological Neurological: Denies numbness, Denies weakness - Psychiatric Psychiatric: Denies anxiety, Denies depression - Endocrine Endocrine: Reports fatigue, Denies weight change - Hematologic/Lymphatic Comment: none - Allergic/Immunologic Allergic/Immunologic: Reports seasonal allergies Objective - Constitutional General appearance: Present: cooperative - EENT Eyes: Present: EOMI ENT: Present: hearing grossly normal - Neck Neck: Present: normal ROM - Respiratory Respiratory: bilateral: CTA - Cardiovascular Rhythm: regular Heart sounds: normal: S1, S2 - Gastrointestinal General gastrointestinal: Present: soft - Integumentary Integumentary: Present: normal turgor - Musculoskeletal Musculoskeletal: Present: gait normal - Psychiatric Psychiatric: Present: A&O x's 3, appropriate affect, intact judgment & insight - Additional findings Additional findings: Breast Exam: BRA: 42D Inspection: Bilateral grade 3 ptosis, bilateral psoriasis Palpation: Right breast: Multi-positional exam fibrocystic changes no dominant masses or nodules of concern Right axilla: No adenopathy of concern Left breast: Multi-positional exam fibrocystic changes no dominant masses or nodules of concern Left axilla: No adenopathy of concern Fungal infection and psoriasis under both breast. Assessment and Plan Assessment: Impressioin: Fibrocystic breast changes Psoriasis Fungal infection under both breast Plan: Bilateral mammogram if this is stable repeat bilateral mammogram in 1 year Nystatin to treat fungal infection under the breast CC: Dr. Reed
== END | disposition home or self-care (01) ==
LOC: WWCWWP 13:00
PROVIDERS: ATTEND Surgery
DX: Z53.9 Procedure and treatment not carried out, unspecified reason (principal)

== ENCOUNTER → 2022-09-05 | Outpatient (CLI) | payer BC ==
[2022-09-05 15:41] VITALS: BP 117/76; PULSE 71; RESP 16; TEMP 97.8
== END ==
LOC: WWCWWP 14:59
PROVIDERS: ATTEND Surgery
DX: Z53.9 Procedure and treatment not carried out, unspecified reason (principal)

== ENCOUNTER → 2022-09-05 | Outpatient (CLI) | payer BC ==
--- NOTE | 2022-09-05 16:06 | MM ---
Reason for Exam: Screening (asymptomatic). Last mammogram was performed 1 year(s) and 2 month(s) ago. Patient History: Menarche at age 13. Patient has no children. Patient used Hormonal Contraceptives for 17 years. 09/20/2019, Benign Core Biopsy on the right side. 07/28/2019, Benign Core Biopsy on the right side. Paternal grandmother had breast cancer, age 50. Risk Values: Jo 5 year model risk: 1.7%. NCI Lifetime model risk: 14.3%. Prior Study Comparison: 04/16/2020 Right Diagnostic Mammogram, [facility]. 07/30/2020 Bilateral Screening Mammogram, [facility]. 08/02/2021 Bilateral Screening Mammogram, [facility]. Tissue Density: There are scattered fibroglandular densities. Findings: Analyzed By CAD. There is been prior surgery on the right breast. Focal asymmetry is on the right. There is a new small nodule measuring 0.5 mm in the upper outer aspect right anterior breast located 5 cm nipple. Ultrasound recommended for additional evaluation. Overall Assessment: Incomplete: need additional imaging evaluation, BI-RAD 0 Management: Diagnostic Breast Ultrasound of the right breast. A negative mammogram report should not preclude additional follow up of suspicious palpable abnormalities. Patient should continue monthly self breast exam. A clinical breast exam by your physician is recommended on an annual basis and results should be correlated with mammographic findings. Electronically signed and approved by: Jean Shook D.O. Radiologis
--- NOTE | 2022-09-05 16:11 | P.PN ---
Progress Note - Text Progress Note Date: 09/05/22 Harini was just seen on [id number] and at that time breast examination did not reveal any new lumps masses or notches of concern. She was due for bilateral mammogram and this was performed on . On the mammogram and no nodule was noted proximally 5 mm in size and proximally 5 cm from the nipple. This was reviewed with Dr. Shook. A right breast ultrasound is recommended. This will be done and she will follow-up after the ultrasound is completed. Correction on the prior report no surgeries were reported the patient has had a right breast biopsy September 2019, was benign fibrocystic changes, sclerosing adenosis with calcifications.. CC:Dr. Reed
== END | disposition home or self-care (01) ==
LOC: RADMAMWWP 15:01
PROVIDERS: ATTEND Surgery
DX: Z12.31 Encounter for screening mammogram for malignant neoplasm of breast (principal); Z80.3 Family history of malignant neoplasm of breast
CPT/HCPCS: 77063; 77067

== ENCOUNTER → 2022-09-25 | Outpatient (CLI) | payer BC ==
--- NOTE | 2022-09-25 15:38 | USB ---
Reason for Exam: Additional evaluation requested from abnormal screening. Patient History: Menarche at age 13. Patient has no children. Patient used Hormonal Contraceptives for 17 years. 09/20/2019, Benign Core Biopsy on the right side. 07/28/2019, Benign Core Biopsy on the right side. Paternal grandmother had breast cancer, age 50. Risk Values: Jo 5 year model risk: 1.7%. NCI Lifetime model risk: 14.3%. Prior Study Comparison: 07/30/2020 Bilateral Screening Mammogram, [facility]. 08/02/2021 Bilateral Screening Mammogram, [facility]. 09/05/2022 Bilateral MG 3D screening mammo w/cad, [facility]. Findings: The upper outer quadrant of the right breast, the axilla of the right breast and the retroareolar of the right breast were scanned. Targeted ultrasound right breast upper outer quadrant from 8:00 to 12:00 including the subareolar region and axilla. At the 11:00 position, 5 cm from the nipple, there is a 4 x 4 x 3 mm benign cyst. At the 9:00 position, 4 cm from the nipple, there is a 4 x 3 x 3 mm intramammary lymph node. Probable mammographic correlate. Six-month follow-up mammogram recommended to reassess. Overall Assessment: Probably benign, BI-RAD 3 Management: Diagnostic Mammogram of the right breast in 6 months. 1. Patient should continue monthly self breast exams. 2. A clinical breast exam by your physician is recommended on an annual basis. 3. This exam should not preclude additional follow-up of suspicious palpable abnormalities. Results were given to the patient verbally at the time of exam. Electronically signed and approved by: Austin Perez M.D. Radiologist
--- NOTE | 2022-09-25 16:21 | P.PN ---
Subjective Progress Note Date: 09/25/22 Anitha was recently seen on [id number]. At that time her breast examination was done and did not reveal any new lumps masses or nodules of concern. She had a bilateral mammogram performed on . On the mammogram there was a right breast nodule which was approximately 5 mm in size noted and an ultrasound was recommended. The ultrasound was performed today on [id number]. The ultrasound was personally reviewed with Dr. Perez. A small intramammary lymph node as well as a small cyst were identified. The recommendation was for a repeat mammogram and ultrasound in 6 months of the right breast. Plan: right breast mammogram and ultrasound in 6 months with appointment at that time. CC: DR. Reed
== END | disposition home or self-care (01) ==
LOC: RADUSWWP 15:04
PROVIDERS: ATTEND Surgery
DX: R92.8 Other abnormal and inconclusive findings on diagnostic imaging of breast (principal); Z80.3 Family history of malignant neoplasm of breast; N63.10 Unspecified lump in the right breast, unspecified quadrant; N60.01 Solitary cyst of right breast

== ENCOUNTER → 2022-09-25 | Outpatient (CLI) | payer BC | LOC: WWCWWP 15:02 | PROVIDERS: ATTEND Surgery | DX: N63.10 Unspecified lump in the right breast, unspecified quadrant (principal); R92.8 Other abnormal and inconclusive findings on diagnostic imaging of breast; Z80.3 Family history of malignant neoplasm of breast ==

== ENCOUNTER → 2023-03-27 | Outpatient (CLI) | payer BC ==
--- NOTE | 2023-03-27 13:50 | MM ---
Reason for Exam: Follow-up at short interval from prior study. Last screening mammogram was performed 6 month(s) ago. Patient History: Menarche at age 13. Patient has no children. Patient used Hormonal Contraceptives for 17 years. 09/20/2019, Benign Core Biopsy on the right side. 07/28/2019, Benign Core Biopsy on the right side. Paternal grandmother had breast cancer, age 50. Risk Values: Jo 5 year model risk: 1.7%. NCI Lifetime model risk: 14.3%. Prior Study Comparison: 07/30/2020 Bilateral Screening Mammogram, [facility]. 08/02/2021 Bilateral Screening Mammogram, [facility]. 09/05/2022 Bilateral MG 3D screening mammo w/cad, [facility]. Tissue Density: Right: The breast tissue is heterogeneously dense. This may lower the sensitivity of mammography. Findings: Analyzed By CAD. Stable nodularity upper outer right breast. Ultrasound is recommended. Surgical clips redemonstrated. No suspicious calcifications. Overall Assessment: Incomplete: need additional imaging evaluation, BI-RAD 0 Management: Diagnostic Breast Ultrasound of the right breast. . Results were given to the patient verbally at the time of exam. Patient should continue monthly self-breast exams. A clinical breast exam by your physician is recommended on an annual basis. This exam should not preclude additional follow-up of suspicious palpable abnormalities. Note on Jo scores and lifetime risk: 1. A Jo score greater than 3% is considered moderate risk. If this is the case, consider specialist referral to assess eligibility for a risk reducing agent. 2. If overall lifetime risk for the development of breast cancer is 20% or higher, the patient may qualify for future screening with alternating mammogram and breast MRI. Electronically signed and approved by: Landon Monge M.D. Radiologis
--- NOTE | 2023-03-27 14:22 | USB ---
Reason for Exam: Follow-up at short interval from prior study. Patient History: Menarche at age 13. Patient has no children. Patient used Hormonal Contraceptives for 17 years. 09/20/2019, Benign Core Biopsy on the right side. 07/28/2019, Benign Core Biopsy on the right side. Paternal grandmother had breast cancer, age 50. Risk Values: Jo 5 year model risk: 1.7%. NCI Lifetime model risk: 14.3%. Technique: Method: Targeted. Prior Study Comparison: 07/30/2020 Bilateral Screening Mammogram, [facility]. 08/02/2021 Bilateral Screening Mammogram, [facility]. 09/05/2022 Bilateral MG 3D screening mammo w/cad, [facility]. Findings: The upper outer quadrant of the right breast, the axilla of the right breast and the retroareolar of the right breast were scanned. Right 11:00 hypoechoic lesion with internal echoes 5 cm from the nipple measuring 5 mm. There is a second hypoechoic lesion noted at the right 9:00 position 4 cm from the nipple measuring 3 mm. These likely reflect small cysts. No suspicious solid masses present. Overall Assessment: Probably benign, BI-RAD 3 Management: Diagnostic Breast Ultrasound of the right breast in 6 months. A clinical breast exam by your physician is recommended on an annual basis and results should be correlated with mammographic findings. This exam should not preclude additional follow-up of suspicious palpable abnormalities. Results were given to the patient verbally at the time of exam. Electronically signed and approved by: Landon Monge M.D. Radiologis
== END | disposition home or self-care (01) ==
LOC: RADMAMWWP 13:15
PROVIDERS: ATTEND Surgery
DX: R92.8 Other abnormal and inconclusive findings on diagnostic imaging of breast (principal)
CPT/HCPCS: 77061; 77065

== ENCOUNTER → 2023-04-03 | Outpatient (CLI) | payer BC ==
[2023-04-03 10:12] VITALS: BP 110/72; PULSE 81; RESP 18; TEMP 98.3
--- NOTE | 2023-04-03 10:42 | P.PN ---
Subjective Progress Note Date: 04/03/23 Principal diagnosis: fibrocystic breast disease Fibrocystic breast changes Harini is a 52-year-old white female followed for fibrocystic breast disease. She underwent a right breast core biopsy in July 2019. This was benign but there was some concern this was discordant and she subsequently underwent a right breast needle local excisional biopsy in September 2019 which was benign as well. She has had a bilateral mammogram on 12to22 which was BIRADS 0 in the right breast ultrasound was recommended no lesions of concern were noted in the left breast the ultrasound was performed on [id number] as well and personally reviewed with Dr. Perez. A small infiltrate mammary lymph node as well as a small cyst was identified and repeat right breast mammogram and ultrasound in 6 months was recommended. This was most recently done on 620 [id number]. The mammogram was BIRADS 0 and ultrasound was recommended it did not show any specific lesions of concern stable mild nodularity in the upper outer quadrant of the breast was noted. On the ultrasound the patient was noted to have at 11:00 hypoechoic lesion with internal echoes 5 cm from the nipple measuring 5 mm. A second hypoechoic lesion was noted at the 9 o'clock position 4 cm from the nipple measuring 3 cm most likely representing a cyst. This was felt to be probably benign BIRADS 3 and moderate mastoid breast ultrasound of the right breast in 6 months was recommended. The patient will be due for bilateral mammogram at that time and we would recommend doing an ultrasound as well. Family history: 1. father: Glioblastoma 2. Paternal grandmother: Breast cancer Hormonal history: menarche: 14 G0 periods regular, on her period now BCP: 20 years, stopped 5 years ago hormones: none Surgical History: none Medical History: none Social History: smoke: none alcohol: occasional drugs: none - Constitutional Constitutional: Denies chills, Denies fever - EENT Eyes: denies blurred vision, denies pain Ears: deny: decreased hearing, tinnitus Ears, nose, mouth and throat: Denies headache, Denies sore throat - Breasts Breasts: bilateral: as per HPI - Cardiovascular Cardiovascular: Denies chest pain, Denies shortness of breath - Respiratory Comment: asthma - Gastrointestinal Gastrointestinal: Denies abdominal pain, Denies diarrhea, Denies nausea, Denies vomiting - Genitourinary (Female) Genitourinary: Denies dysuria, Denies hematuria - Menstruation Menstruation: Reports period normal - Musculoskeletal Musculoskeletal: Denies myalgias - Integumentary Comment: psoriasis - Neurological Neurological: Denies numbness, Denies weakness - Psychiatric Psychiatric: Denies anxiety, Denies depression - Endocrine Endocrine: Reports fatigue, Denies weight change - Hematologic/Lymphatic Comment: none - Allergic/Immunologic Allergic/Immunologic: Reports seasonal allergies Objective - Vital Signs Vital signs: Vital Signs Temp 98.3 F 04/03/23 10:09 Pulse 81 04/03/23 10:09 Resp 18 04/03/23 10:09 BP 110/72 04/03/23 10:09 Pulse Ox 98 04/03/23 10:09 FiO2 - Constitutional General appearance: Present: cooperative - EENT Eyes: Present: EOMI ENT: Present: hearing grossly normal - Neck Neck: Present: normal ROM - Respiratory Respiratory: bilateral: CTA - Cardiovascular Rhythm: regular Heart sounds: normal: S1, S2 - Gastrointestinal General gastrointestinal: Present: soft - Integumentary Integumentary: Present: normal turgor - Musculoskeletal Musculoskeletal: Present: gait normal - Psychiatric Psychiatric: Present: A&O x's 3, appropriate affect, intact judgment & insight - Additional findings Additional findings: Breast Exam: BRA: 42D Inspection: Bilateral grade 3 ptosis, bilateral psoriasis Palpation: Right breast: Multi-positional exam fibrocystic changes no dominant masses or nodules of concern Right axilla: No adenopathy of concern Left breast: Multi-positional exam fibrocystic changes no dominant masses or nodules of concern Left axilla: No adenopathy of concern Fungal infection and psoriasis under both breast improved but still present Assessment and Plan Assessment: Assessment and Plan Assessment: Impressioin: Fibrocystic breast changes Psoriasis Fungal infection under both breast greater on the right Plan: Bilateral mammogram in September 2023, right breast ultrasound September 2023 follow up after above done Nystatin to treat fungal infection under the breast CC: Dr. Reed Additional CC's: Lalo Reed
== END ==
LOC: WWCWWP 09:51
PROVIDERS: ATTEND Surgery
DX: N60.19 Diffuse cystic mastopathy of unspecified breast (principal); Z80.3 Family history of malignant neoplasm of breast

== ENCOUNTER → 2023-09-30 | Outpatient (CLI) | payer BC ==
--- NOTE | 2023-09-30 14:33 | MM ---
Reason for Exam: Follow-up at short interval from prior study. Last screening mammogram was performed 12 month(s) ago. Patient History: Menarche at age 13. Patient has no children. Postmenopausal. Patient used Hormonal Contraceptives for 17 years. 09/20/2019, Benign Core Biopsy on the right side. 07/28/2019, Benign Core Biopsy on the right side. Paternal grandmother had breast cancer, age 50. Risk Values: Jo 5 year model risk: 1.8%. NCI Lifetime model risk: 14.0%. Tissue Density: There are scattered fibroglandular densities. Findings: Analyzed By CAD. Surgical clips in the right breast. Fibroglandular tissue of the right breast is similar. There is no suspicious group of microcalcifications or new suspicious mass. No new suspicious masses, calcifications or distortions. Overall Assessment: Incomplete: need additional imaging evaluation, BI-RAD 0 Management: Diagnostic Breast Ultrasound of the right breast. Results were given to the patient verbally at the time of exam. Patient should continue monthly self-breast exams. A clinical breast exam by your physician is recommended on an annual basis. This exam should not preclude additional follow-up of suspicious palpable abnormalities. Note on Jo scores and lifetime risk: 1. A Jo score greater than 3% is considered moderate risk. If this is the case, consider specialist referral to assess eligibility for a risk reducing agent. 2. If overall lifetime risk for the development of breast cancer is 20% or higher, the patient may qualify for future screening with alternating mammogram and breast MRI. Electronically signed and approved by: Jhonathan Hooper DO
--- NOTE | 2023-09-30 14:57 | USB ---
Patient History: Menarche at age 13. Patient has no children. Postmenopausal. Patient used Hormonal Contraceptives for 17 years. 09/20/2019, Benign Core Biopsy on the right side. 07/28/2019, Benign Core Biopsy on the right side. Paternal grandmother had breast cancer, age 50. Risk Values: Jo 5 year model risk: 1.8%. NCI Lifetime model risk: 14.0%. Technique: Method: Targeted. Prior Study Comparison: 08/02/2021 Bilateral Screening Mammogram, [facility]. 09/05/2022 Bilateral MG 3D screening mammo w/cad, [facility]. 03/27/2023 Right MG 3D diag mammo w/cad RT, [facility]. 03/27/2023 Right US breast limited RT, [facility]. Findings: The upper outer quadrant of the right breast, the axilla of the right breast and the retroareolar of the right breast were scanned. Technique utilized:US breast limited RT Image; Ultrasound imaging of: Area of concern, retroareolar region and axilla. Small cystic structures at 9:00 4 cm nipple measuring up to 3 x 3 x 2 mm and 11:00 5 cm from the nipple measuring 4 x 3 x 4 mm. These are stable and felt to represent cysts minimally cut located cysts. Overall Assessment: Benign, BI-RAD 2 Management: Screening Mammogram of both breasts in 1 year. A clinical breast exam by your physician is recommended on an annual basis and results should be correlated with mammographic findings. This exam should not preclude additional follow-up of suspicious palpable abnormalities. Results were given to the patient verbally at the time of exam. Electronically signed and approved by: Jhonathan Hooper DO
== END | disposition home or self-care (01) ==
LOC: RADMAMWWP 13:44
PROVIDERS: ATTEND Surgery
DX: R92.323 Mammographic fibroglandular density, bilateral breasts (principal); N60.01 Solitary cyst of right breast; Z78.0 Asymptomatic menopausal state; Z80.3 Family history of malignant neoplasm of breast
CPT/HCPCS: 77062; 77066

== ENCOUNTER → 2023-11-20 | Outpatient (CLI) | payer BC ==
--- NOTE | 2023-11-20 15:20 | P.PN ---
Subjective Progress Note Date: 11/20/23 Principal diagnosis: fibrocystic breast changes 04/03/23 Principal diagnosis: fibrocystic breast disease Fibrocystic breast changes Harini is a 52-year-old white female followed for fibrocystic breast disease. She underwent a right breast core biopsy in July 2019. This was benign but there was some concern this was discordant and she subsequently underwent a right breast needle local excisional biopsy in September 2019 which was benign as well. She has had a bilateral mammogram on which was BIRADS 0 in the right breast ultrasound was recommended no lesions of concern were noted in the left breast the ultrasound was performed on [id number] as well and personally reviewed with Dr. Perez. A small infiltrate mammary lymph node as well as a small cyst was identified and repeat right breast mammogram and ultrasound in 6 months was recommended. This was most recently done on 620 323. The mammogram was BIRADS 0 and ultrasound was recommended it did not show any specific lesions of concern stable mild nodularity in the upper outer quadrant of the breast was noted. On the ultrasound the patient was noted to have at 11:00 hypoechoic lesion with internal echoes 5 cm from the nipple measuring 5 mm. A second hypoechoic lesion was noted at the 9 o'clock position 4 cm from the nipple measuring 3 cm most likely representing a cyst. This was felt to be probably benign BIRADS 3 and moderate mastoid breast ultrasound of the right breast in 6 months was recommended. The patient will be due for bilateral mammogram at that time and we would recommend doing an ultrasound as well. bilateral mammogram and right breast ultrasound on 09-30-23 BIRAD 2 patient is not complaining of any new lumps masses or nodules of concern in either breast, tanning once a week and this seems to have helped the psoriasis and the fungal infection under her breast Family history: 1. father: Glioblastoma 2. Paternal grandmother: Breast cancer Hormonal history: menarche: 14 G0 periods regular, on her period now BCP: 20 years, stopped 5 years ago hormones: none Surgical History: none Medical History: none Social History: smoke: none alcohol: occasional drugs: none - Constitutional Constitutional: Denies chills, Denies fever - EENT Eyes: denies blurred vision, denies pain Ears: deny: decreased hearing, tinnitus Ears, nose, mouth and throat: Denies headache, Denies sore throat - Breasts Breasts: bilateral: as per HPI - Cardiovascular Cardiovascular: Denies chest pain, Denies shortness of breath - Respiratory Comment: asthma - Gastrointestinal Gastrointestinal: Denies abdominal pain, Denies diarrhea, Denies nausea, Denies vomiting - Genitourinary (Female) Genitourinary: Denies dysuria, Denies hematuria - Menstruation Menstruation: Reports period normal - Musculoskeletal Musculoskeletal: Denies myalgias - Integumentary Comment: psoriasis - Neurological Neurological: Denies numbness, Denies weakness - Psychiatric Psychiatric: Denies anxiety, Denies depression - Endocrine Endocrine: Reports fatigue, Denies weight change - Hematologic/Lymphatic Comment: none - Allergic/Immunologic Allergic/Immunologic: Reports seasonal allergies Objective - Vital Signs Vital signs: Vital Signs Temp 97.7 F 11/20/23 15:07 Pulse 83 11/20/23 15:07 Resp 15 11/20/23 15:07 BP 115/78 11/20/23 15:07 Pulse Ox 97 11/20/23 15:07 FiO2 Intake & Output 11/19/23 11/20/23 11/20/23 18:59 06:59 18:59 Weight 90.718 kg - Constitutional General appearance: Present: cooperative - EENT Eyes: Present: EOMI ENT: Present: hearing grossly normal - Neck Neck: Present: normal ROM - Respiratory Respiratory: bilateral: CTA - Cardiovascular Heart sounds: normal: S1, S2 - Integumentary Integumentary: Present: normal turgor - Musculoskeletal Musculoskeletal: Present: gait normal - Psychiatric Psychiatric: Present: A&O x's 3, appropriate affect, intact judgment & insight - Additional findings Additional findings: Breast Exam: BRA: 42D Inspection: Bilateral grade 3 ptosis, bilateral psoriasis; infection under the right breast greater than on the left side Palpation: Right breast: Multi-positional exam fibrocystic changes no dominant masses or nodules of concern Right axilla: No adenopathy of concern Left breast: Multi-positional exam fibrocystic changes no dominant masses or nodules of concern Left axilla: No adenopathy of concern Fungal infection and psoriasis under both breast improved but still present greater on the right Assessment and Plan Assessment: Impressioin: Fibrocystic breast changes Psoriasis Fungal infection under both breast greater on the right 12-01-22 bilateral mammogram and right breast ultrasound BIRAD 2 Plan: Bilateral mammogram in September 2024 with appointment follow up after above done Nystatin to treat fungal infection under the breast CC: Dr. Reed
[2023-11-20 15:37] VITALS: BP 115/78; PULSE 83; RESP 15; TEMP 97.7
== END ==
LOC: WWCWWP 14:51
PROVIDERS: ATTEND Surgery
DX: N60.11 Diffuse cystic mastopathy of right breast (principal); N60.12 Diffuse cystic mastopathy of left breast; L40.9 Psoriasis, unspecified; B37.89 Other sites of candidiasis; N64.89 Other specified disorders of breast; Z80.3 Family history of malignant neoplasm of breast

== ENCOUNTER → 2024-11-02 | Outpatient (CLI) | payer BC ==
--- NOTE | 2024-11-03 07:22 | MM ---
Reason for Exam: Screening (asymptomatic). Last mammogram was performed 1 year(s) and 1 month(s) ago. Patient History: Menarche at age 13. Patient has no children. Postmenopausal. Patient used Hormonal Contraceptives for 17 years. 09/20/2019, Benign Core Biopsy on the right side. 07/28/2019, Benign Core Biopsy on the right side. Paternal grandmother had breast cancer, age 50. Risk Values: Jo 5 year model risk: 1.8%. NCI Lifetime model risk: 13.8%. Prior Study Comparison: 09/05/2022 Bilateral MG 3D screening mammo w/cad, [facility]. 03/27/2023 Right MG 3D diag mammo w/cad RT, [facility]. 09/30/2023 Bilateral MG 3D diag mammo w/cad JESIKA, [facility]. Tissue Density: There are scattered areas of fibroglandular density. Findings: Analyzed By CAD. Right breast surgical clips. Right breast: There is no suspicious group of microcalcifications or new suspicious mass. Left breast: There is no suspicious group of microcalcifications or new suspicious mass. Overall Assessment: Negative, BI-RAD 1 Management: Screening Mammogram of both breasts in [address] [facility] will attempt to contact patient to return for supplemental views and ultrasound if indicated. Patient should continue monthly self-breast exams. A clinical breast exam by your physician is recommended on an annual basis. This exam should not preclude additional follow-up of suspicious palpable abnormalities. Note on Jo scores and lifetime risk: 1. A Jo score greater than 3% is considered moderate risk. If this is the case, consider specialist referral to assess eligibility for a risk reducing agent. 2. If overall lifetime risk for the development of breast cancer is 20% or higher, the patient may qualify for future screening with alternating mammogram and breast MRI. [facility], , 11/03/2024 7:19 AM. Electronically signed and approved by: Jhonathan Hooper DO
== END | disposition home or self-care (01) ==
LOC: RADMAMWWP 15:49
PROVIDERS: ATTEND Surgery
DX: Z12.31 Encounter for screening mammogram for malignant neoplasm of breast (principal); R92.323 Mammographic fibroglandular density, bilateral breasts; Z78.0 Asymptomatic menopausal state; Z80.3 Family history of malignant neoplasm of breast
CPT/HCPCS: 77063; 77067

== ENCOUNTER → 2025-01-05 | Outpatient (CLI) | payer BC ==
[2025-01-05 14:35] VITALS: BP 104/71; PULSE 109; RESP 17; TEMP 98
--- NOTE | 2025-01-05 15:05 | P.PN ---
Subjective Progress Note Date: 01/05/25 Principal diagnosis: fibrocystic breast changes 01-05-25 Principal diagnosis: fibrocystic breast changes Principal diagnosis: fibrocystic breast disease Harini is a 54-year-old white female followed for fibrocystic breast disease. She underwent a right breast core biopsy in July 2019. This was benign but there was some concern this was discordant and she subsequently underwent a right breast needle local excisional biopsy in September 2019 which was benign as well. She has had a bilateral mammogram on which was BIRADS 0 in the right breast ultrasound was recommended no lesions of concern were noted in the left breast the ultrasound was performed on [id number] as well and personally reviewed with Dr. Perez. A small infiltrate mammary lymph node as well as a small cyst was identified and repeat right breast mammogram and ultrasound in 6 months was recommended. This was most done on 620 [id number]. The mammogram was BIRADS 0 and ultrasound was recommended it did not show any specific lesions of concern s table mild nodularity in the upper outer quadrant of the breast was noted. On the ultrasound the patient was noted to have at 11:00 hypoechoic lesion with internal echoes 5 cm from the nipple measuring 5 mm. A second hypoechoic lesion was noted at the 9 o'clock position 4 cm from the nipple measuring 3 cm most likely representing a cyst. This was felt to be probably benign BIRADS 3 ultrasound of the right breast in 6 months was recommended. The patient will be due for bilateral mammogram at that time and we would recommend doing an ultrasound as well. bilateral mammogram and right breast ultrasound on 09-30-23 BIRAD 2 patient is not complaining of any new lumps masses or nodules of concern in either breast, tanning once a week and this seems to have helped the psoriasis and the fungal infection under her breast Bilateral mammogram on 11-02-24 BIRAD 1 She is tanning once a week with some improvement of psoriasis Family history: 1. father: Glioblastoma 2. Paternal grandmother: Breast cancer Hormonal history: menarche: 14 G0 periods regular, on her period now BCP: 20 years, stopped 5 years ago hormones: none Surgical History: none Medical History: none Social History: smoke: none alcohol: occasional drugs: none - Constitutional Constitutional: Denies chills, Denies fever - EENT Eyes: denies blurred vision, denies pain Ears: deny: decreased hearing, tinnitus Ears, nose, mouth and throat: Denies headache, Denies sore throat - Breasts Breasts: bilateral: as per HPI - Cardiovascular Cardiovascular: Denies chest pain, Denies shortness of breath - Respiratory Comment: asthma - Gastrointestinal Gastrointestinal: Denies abdominal pain, Denies diarrhea, Denies nausea, Denies vomiting - Genitourinary (Female) Genitourinary: Denies dysuria, Denies hematuria - Menstruation Menstruation: Reports period normal - Musculoskeletal Musculoskeletal: Denies myalgias - Integumentary Comment: psoriasis - Neurological Neurological: Denies numbness, Denies weakness - Psychiatric Psychiatric: Denies anxiety, Denies depression - Endocrine Endocrine: Reports fatigue, Denies weight change - Hematologic/Lymphatic Comment: none - Allergic/Immunologic Allergic/Immunologic: Reports seasonal allergies Objective - Vital Signs Vital signs: Vital Signs Temp 98 F 01/05/25 14:33 Pulse 109 H 01/05/25 14:33 Resp 17 01/05/25 14:33 BP 104/71 01/05/25 14:33 Pulse Ox 97 01/05/25 14:33 FiO2 Intake & Output 01/04/25 01/05/25 01/05/25 18:59 06:59 18:59 Weight 90.718 kg - Constitutional General appearance: Present: cooperative - EENT Eyes: Present: EOMI ENT: Present: hearing grossly normal - Neck Neck: Present: normal ROM - Respiratory Respiratory: bilateral: CTA - Cardiovascular Rhythm: regular Heart sounds: normal: S1, S2 - Integumentary Integumentary: Present: normal turgor - Musculoskeletal Musculoskeletal: Present: gait normal - Psychiatric Psychiatric: Present: A&O x's 3, appropriate affect, intact judgment & insight - Additional findings Additional findings: Breast Exam: BRA: 42D Inspection: Bilateral grade 3 ptosis, bilateral psoriasis; infection under the right breast greater than on the left side; right breast larger than left breast Palpation: Right breast: Multi-positional exam fibrocystic changes no dominant masses or nodules of concern; fungal infection and psoriasis under the breast Right axilla: No adenopathy of concern Left breast: Multi-positional exam fibrocystic changes no dominant masses or nodules of concern fungal infection and psoriasis under the breast Left axilla: No adenopathy of concern Fungal infection and psoriasis under both breast improved Assessment and Plan Assessment: Impressioin: Fibrocystic breast changes Psoriasis Fungal infection under both breast greater on the right 11-02-24 bilateral mammogram and right breast ultrasound BIRAD 1 Plan: Bilateral mammogram in Oct 2025 with appointment follow up after above done Nystatin to treat fungal infection under the breast CC: Dr. Reed
== END ==
LOC: WWCWWP 14:25
PROVIDERS: ATTEND Surgery
DX: Z12.31 Encounter for screening mammogram for malignant neoplasm of breast (principal); N60.19 Diffuse cystic mastopathy of unspecified breast; L40.9 Psoriasis, unspecified; B37.89 Other sites of candidiasis